=== PATIENT | female | born 1970 | race Caucasian/White ===

== ENCOUNTER → 2021-08-20 13:02 | Outpatient (BNVA) | payer OTHER, SELFPAY | PROVIDERS: PCP Internal Medicine; Visit Provider Nurse Practitioner Family | DX: G43.109 Migraine with aura, not intractable, without status migrainosus (principal); G47.33 Obstructive sleep apnea (adult) (pediatric) | CPT/HCPCS: Q3014 ==

== ENCOUNTER → 2021-12-02 11:09 | Outpatient (BNVA) | payer OTHER, SELFPAY | PROVIDERS: PCP Internal Medicine; Visit Provider Nurse Practitioner Family | DX: Z13.89 Encounter for screening for other disorder (principal) | CPT/HCPCS: Q3014 ==